=== PATIENT | male | born 1975 | race Caucasian/White ===

== ENCOUNTER 2025-05-30 12:55 | Emergency (ER) | payer SELFPAY ==
[2025-05-30 12:57] VITALS: BP 134/95
[2025-05-30 13:20] VITALS: BMI 28.7
--- NOTE | 2025-05-30 13:27 | EDRN ---
Mic VANESSA in room w/ pt.
[2025-05-30] MEDS: MOTRIN 600 MG PO (13:37)
--- NOTE | 2025-05-30 13:39 | ED.GENMED ---
History of Present Illness
General
Chief Complaint: Fall
Source: patient
Exam Limitations: none
Time Seen by Provider: 05/30/25 13:26
History of Present Illness
History of Present Illness:
50yoM with no significant past medical history presenting for evaluation after a fall about 2 hours ago. Patient was cutting a tree branch on a ladder when the ladder started to fall. He fell approximately 12 feet on his left side. He denies any
head strike or LOC. He is complaining of pain in his left wrist primarily. He also reports some mild pain in his left thoracic region that worsens with breathing. He does not take any blood thinners.
Phy Exam
General Physical Exam
General Presentation: well appearing and no apparent distress
General Skin: warm and dry
General Habitus: normal
General Mental: alert
ENT Exam
ENT Exam: TM's normal (No hemotympanum), normocephalic and other (No external signs of head trauma. No cervical spine tenderness with full ROM.)
Eye Exam
Eye Exam: PERRL and conjunctiva normal
Pulmonary Exam
Pulmonary Exam: lungs clear, no respiratory distress, no rales, chest non tender, no crackles and no rhonchi
Gastrointestinal Exam
Gastrointestinal Exam: non tender, soft and non distended
Neurological Exam
Neurological Exam: alert and other (Ambulating with a steady gait)
[place] Coma Scale
Eye Opening: Spontaneous
Verbal Response: Oriented
Motor Response: Obeys Commands
GCS Total Score: 15
Musculoskeletal Exam
Musculoskeletal Exam: other (L wrist: Mild soft tissue swelling noted. No deformity. +Tenderness to distal radius. ROM decreased 2/2 pain. 2+ radial pulse and sensation intact.)
Skin Exam
Skin Exam: normal color and warm/dry
Psychiatric Exam
Psychiatric Exam: normal mood/affect
Course
Orders/Labs/Results
Orders:
Orders
05/30/25 12:55
Forearm, Left 2 View [CR Forearm - Left 2 View] Urgent
Comment:
Reason For Exam: pain
05/30/25 13:35
Ibuprofen [Motrin] 600 mg .ROUTE .STK-MED ONE
05/30/25 13:36
Ibuprofen [Motrin] 600 mg PO NOW STA
05/30/25 13:37
Splints/Slings/Crut- Treatment ONCE
Location: Left
Type of Splint: Sugar Ton
Ibuprofen [Motrin] 600 mg PO NOW STA
05/30/25 13:48
CR Ribs-left 3 Vw W/pa Chest Urgent
Comment:
Reason For Exam: L thoracic pain s/p fall
Vital Signs
Initial and Last Documented VS:
Initial Vital Signs
Temp Pulse Resp BP Pulse Ox
98.3 F 70 16 134/95 99
05/30/25 12:57 05/30/25 12:57 05/30/25 12:57 05/30/25 12:57 05/30/25 12:57
Last Documented Vital Signs
Temp Pulse Resp BP Pulse Ox
98.3 F 70 16 134/95 99
05/30/25 12:57 05/30/25 12:57 05/30/25 12:57 05/30/25 12:57 05/30/25 13:42
MDM/Problems Addressed
Differential Diagnosis Includes:
50yoM here after a fall off a ladder. Main complaint is L wrist pain. Denies head injury and there are no external signs of head trauma on exam. L wrist is mildly swollen with tenderness. No deformity noted and LUE is neurovascularly intact. He does
report some L thoracic pain but there is no reproducible tenderness or skin changes. Bilateral breath sounds equal. No other injuries noted on exam. Differential diagnosis includes but is not limited to: fracture, sprain, pneumothorax
X-rays of L wrist obtained in triage which show a nondisplaced distal radius fracture with an ulnar styloid fracture. CT chest initially ordered given mechanism. Patient refusing CT due to concern for cost as he is uninsured but he is agreeable for
CXR. Rib series x-rays ultimately came back negative. He was placed in a sugar tong splint by charge histotechnologist. Neurovascular status unchanged after splint placement. Advised f/u with orthopedics and patient discharged in stable condition.
*Pulse Oximetry
SaO2: 99
Oxygen Mode of Delivery: Room air
Patient hypoxic: no (99%)
*Critical Care Note
Total Time (30-74mins, 75-104mins- exclusive of procedures): Not Applicable
ED Attending Note
-
Portions of this chart may have been created with voice recognition software.� Occasional wrong word or��sound alike� substitutions may have occurred due to the inherent limitations of voice recognition software.
Discharge Plan
Departure
Patient Disposition: Home (Routine Discharge)
Date of Disposition: 05/30/25
Time of Disposition: 14:58
Patient with high blood pressure during this ER visit?: No
Discharge Problem:
Fall from ladder, Fracture of left distal radius
Instructions: Wrist Fracture (DC), Splint Care
Prescriptions:
New
ibuprofen 600 mg tablet
600 mg PO Q6H PRN (Reason: Pain) Qty: 30 0RF
Referrals:
Lazaro Dash MD [Active, Orthopedics]
Activity Restrictions/Additional Instructions:
Keep splint in place and do not get wet. Take ibuprofen as needed for pain.
Please call today to schedule a follow-up appointment with orthopedics. Return to the ER with any new or worsening symptoms.
Interventions
Interventions:
*Risk Screen - Suicide Last Done: 05/30/25 13:22
*General Assessment Last Done: 05/30/25 13:22
*Neglect/Abuse Screening Last Done: 05/30/25 13:22
*ED- Fall Risk Assessment Last Done: 05/30/25 13:22
*ED COVID-19 Vaccine History Last Done: 05/30/25 13:22
*Nursing Disposition Last Done: 05/30/25 15:28
ED-Musculoskeletal Assessment Last Done: 05/30/25 13:23
ED- Neurological Assessment Last Done: 05/30/25 13:23
ED-Skin Assessment Last Done: 05/30/25 13:23
Discharge Date and Time
Discharge Date/Time: 05/30/25 15:29
Print Language: THAI
--- NOTE | 2025-05-30 13:40 | EDRN ---
Pt has no insurance and declining to have CT scan done. Pt did agree to CXR after much discussion and recommendation for CT. Mic VANESSA informed and CT changed to CXR.
== END 2025-05-30 15:29 | disposition home or self-care (01) ==
LOC: EMR 12:55
PROVIDERS: EMERGENCY PHYSICIAN Student in an Organized Health Care Education/Training Program; FAMILY PHYSICIAN Family Medicine
DX: S52.502A Unspecified fracture of the lower end of left radius, initial encounter for closed fracture (principal); S52.615A Nondisplaced fracture of left ulna styloid process, initial encounter for closed fracture; M54.6 Pain in thoracic spine; W11.XXXA Fall on and from ladder, initial encounter; Y93.H2 Activity, gardening and landscaping
CPT/HCPCS: 99283; 29125; 71101; 73090